=== PATIENT | female | born 2000 ===

== ENCOUNTER → 2023-06-16 23:59 | Outpatient (BNV) | payer OTHER, SELFPAY ==
--- NOTE | 2023-06-17 10:40 | MHC.OFFVIS ---
Intake Intake Visit Reasons: follow up HPI HPI Comments History of Present Illness Details student here for orientation. she just recently got her own insurnace and is llooking for pcp - she has behealthy so was [facility]. she goes to [address] [facility] - [facility]. NKA - except seasonal for which she takes advil - has never taken claritin (teaching done) MEDS:she isnt on any medications - except Nexplanon - she's had this for a few months - still spotting a lot and was told this was noraml and will stop. she hasn't had any covid vaccine - thinking about it there is a clinic offered downstairs today and she would like this but states that she s scared of needles- offered support. PMH: asthma - as a kid - hasn't needed a pump in years, no hospitalizations/surgery ETOH none , drugs: none - beofre she became (the first time - she miscarried)...she hasn't smoked at all since then because she worried that she'd caused something to happen. (almost 2 year old daughter) she doesn't want to be right now - would like to have her own house. 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 no harm - but doesn't feel free FMH: mother well, father well (not around) both her sister and brother are well. she felt her child leyva was peaceful and happy. her parernts are not together. but she feels that she was raised kindly. she is in a relationshio w. a male - she feels that it is not doing well, because he is a more reactive parent and she feels that their 2 year old should be able to be a child. goals at school - wants to finish tests tomorrow - writing, and wants to be in health field - wants usn tech first but wants to be a nurse - discused a bit - supported her education [facility] Medical History History of COVID-19 History of asthma Nexplanon in place Family History Mother No problems noted. Brother No problems noted. Sister No problems noted. Daughter No problems noted. Father No problems noted. Questionnaire PHQ-9 Over the last 2 weeks, how often have you been bothered by any of the following problems? 1. Little interest or pleasure in doing things: not at all 2. Feeling down, depressed, or hopeless: not at all 3. Trouble falling or staying asleep, or sleeping too much: not at all 4. Feeling tired or having little energy: not at all 5. Poor appetite or overeating: not at all 6. Feeling bad about yourself - or that you are a failure or have let yourself or your family down: not at all 7. Trouble concentrating on things, such as reading the newspaper or watching television: not at all 8. Moving or speaking so slowly that other people could have noticed. Or the opposite - being so fidgety or restless that you have been moving around a lot more than usual: not at all 9. Thoughts that you would be better off or of hurting yourself in some way: not at all Total score: 0 Depression Screening Interpretation: Negative Depression Screening Done: Yes 76371 - PHQ-9 Billing: Yes Source: Developed by Drs. Raul Marquez, Marcia Rosas, Eleuterio Cook and colleagues, with an educational phoebe from [employer]. CRAFFT Screening Tool PART A: In the PAST 12 MONTHS, did you: Drink any alcohol (more than few sips)? (Do not count sips of alcohol taken during family or druze events.): No Smoke any marijuana or hashish?: No Use anything else to get high? (includes illegal drugs, over the counter/prescription drugs, or things that you sniff/russo?): No PART B: If answered YES to ANY above: Have you ever been in a CAR driven by someone (including yourself) who was high or had been using alcohol or drugs?: No Do you ever use alcohol or drugs to RELAX, feel better about yourself, or fit in?: No Do you ever use alcohol or drugs while you are by yourself, or ALONE?: No Do you ever FORGET things while using alcohol or drugs?: No Do your FAMILY or FRIENDS ever tell you that you should cut down on your drinking or drug use?: No Have you ever gotten into TROUBLE while you were using alcohol or drugs?: No CRAFFT Assessment Charge Crafft: BETSY 44729 Review of Systems Const Details: Counseling visit: All systems reviewed & are unremarkable except as noted in HPI and below Reports as per HPI Resp Reports as per HPI GI Reports as per HPI Musc Reports as per HPI Neuro Reports as per HPI Psych Reports as per HPI Physical Exam Const Other: pleasant interactive General: cooperative, healthy appearing and no acute distress Nutritional Appearance: well nourished Orientation/consciousness: oriented to person Limitations: no limitations HEENT Other: wnl Eyes Other: wnl Chest Other: easy breathing Resp Effort & Inspection: able to speak in complete sentences Skin Other: normal in appearance Neuro General: oriented to person Psych Other: see HPI Mental Status: mental status grossly normal Speech and movement: Clear speech present Attitude: cooperative Thought process: Normal thought process present Assessment & Plan Assessment & Plan (1) control counseling: Code(s): Z30.09 - Encounter for other general counseling and advice on contraception (2) COVID-19 vaccination refused: Code(s): Z28.21 - Immunization not carried out because of patient refusal (3) Counseling and coordination of care: Code(s): Z71.89 - Other specified counseling Plan counsleing offered re covid vaccination - offered to go w/ her, she declines - identified this to mich meehan on site counselor to see if she can support her further counseling re: control - she doesn't love nexplanon - discussed alternatives and ways to deal w/ spotting. she has a history of asthma- offered pump if needs it, she will sign up to see me history of allergies - discussed antihistamine and support if symptoms return - Quality Reporting (2019) Depression/Bipolar (159/160/161/177) PHQ-9: Total score: 0 Coding Level of Care Code New Pt Level 4 (32467) Diagnoses control counseling Z30. COVID-19 vaccination refused Z28.21 Counseling and coordination of care Z71.89 Additional Codes CRAFFT Assessment Charge - Betsy: BETSY [id number] ([id number]) Time Spent (min) 50 Comment counseling as above and coord care w/ onsite counseling staff
== END ==
PROVIDERS: PCP Nurse Practitioner Family; Visit Provider Nurse Practitioner Family
DX: Z30.09 Encounter for other general counseling and advice on contraception (principal); Z28.21 Immunization not carried out because of patient refusal; Z71.89 Other specified counseling
CPT/HCPCS: 96160; 99204